=== PATIENT | male | born 1955 | race Caucasian/White ===

== ENCOUNTER 2020-07-12 19:16 | Emergency (ER) | payer OTHER, BC | END 2020-07-12 20:49 | disposition home or self-care (01) | LOC: CSHERS 19:16 | DX: M54.5 Low back pain (principal); M54.2 Cervicalgia; E78.5 Hyperlipidemia, unspecified; E11.9 Type 2 diabetes mellitus without complications; Z79.84 Long term (current) use of oral hypoglycemic drugs; V89.2XXA Person injured in unspecified motor-vehicle accident, traffic, initial encounter | CPT/HCPCS: 72125; 72131 ==